=== PATIENT | female | born 2000 | race Caucasian/White ===

== ENCOUNTER 2020-08-09 16:31 | Emergency (ER) | payer OTHER ==
[2020-08-09 16:53] VITALS: BP 114/70; PULSE 80; TEMP 98.5; BMI 26.5
[2020-08-09 17:14] LABS: THROAT:GRP A STREP ANTIGEN Negative (Negative)
== END 2020-08-09 17:26 | disposition home or self-care (01) ==
LOC: JERFT 16:31 → JER 16:31 → JERFT 17:26
DX: J02.9 Acute pharyngitis, unspecified (principal)
CPT/HCPCS: 87070; 87880; 99283-25; C9803; U0003

== ENCOUNTER 2020-08-11 19:54 | Emergency (ER) | payer OTHER ==
[2020-08-11 20:45] VITALS: BP 114/71; PULSE 98; TEMP 99.3; BMI 30.9
== END 2020-08-11 20:51 | disposition home or self-care (01) ==
LOC: JERFT 19:54 → JER 19:54 → JERFT 20:51
DX: J06.9 Acute upper respiratory infection, unspecified (principal)
CPT/HCPCS: 99282-25

== ENCOUNTER 2021-09-21 19:08 | Emergency (ER) | payer OTHER ==
[2021-09-21 19:46] VITALS: BP 108/78; PULSE 89; TEMP 98.1; BMI 30.9
== END 2021-09-21 20:26 | disposition home or self-care (01) ==
LOC: JER 19:08
DX: U07.1 COVID-19 (principal)
CPT/HCPCS: 99283-25; C9803; U0003; U0005

== ENCOUNTER 2022-08-07 16:41 | Emergency (ER) | payer OTHER ==
[2022-08-07 17:06] VITALS: BP 118/75; PULSE 96; RESP 18; TEMP 98.6; BMI 32.5
[2022-08-07] MEDS ORDERED: ONDANSETRON 4 MG/2 ML VIAL IVPUSH ONE (19:15)
[2022-08-07] MEDS ORDERED: SODIUM CHLORIDE 1,000 ML IV STA (19:15)
[2022-08-07] MEDS ORDERED: ONDANSETRON 4 MG/2 ML VIAL ONE (19:50)
[2022-08-07 19:56] LABS: BASO % 0.4 % (0-2.0); EOS % 0.4 % (0-4.5); HEMATOCRIT 35.5 % (32.4-45.2); HEMOGLOBIN 11.5 GM/dL (10.7-15.3); LYMPH % 8.9 % (8-40); MCH 29.1 pg (25.7-33.7); MCHC 32.5 g/dl (32.0-36.0); MEAN CELL VOLUME 89.6 fl (80-96); MEAN PLT VOLUME 10.2 fl (7.5-11.1); MONO % 6.3 % (3.8-10.2); PLATELET COUNT 238 10^3/uL (134-434); RBC 3.96 M/mm3 (3.60-5.2); RDW 12.5 % (11.6-15.6); WHITE BLOOD COUNT 16.3 K/mm3 (4.0-10.0)
[2022-08-07 20:20] LABS: ALBUMIN 3.2 g/dl (3.4-5.0); BLOOD UREA NITROGEN 16.2 mg/dL (7-18); CALCIUM 9.1 mg/dL (8.5-10.1)
[2022-08-07 20:22] LABS: CREATININE 0.8 mg/dL (0.55-1.3)
[2022-08-07 20:24] LABS: BILIRUBIN,TOTAL 0.2 mg/dL (0.2-1); TOT PROT 7.1 g/dl (6.4-8.2)
[2022-08-07 22:12] LABS: EPI CELLS >36 /uL (0-25.1); HYALINE CASTS 1 /uL (0-3.1); URINE APPEARANCE CLOUDY; URINE BACTERIA 926 /uL (0-1359); URINE BILIRUBIN NEGATIVE (NEGATIVE); URINE COLOR YELLOW; URINE GLUCOSE (UA) NEGATIVE (NEGATIVE); URINE KETONE 3+ (NEGATIVE); URINE LEUK ESTERASE 1+ (NEGATIVE); URINE NITRITE NEGATIVE (NEGATIVE); URINE PROTEIN TRACE (NEGATIVE); URINE RBC 11 /uL (0-23.9); URINE WBC 142 /uL (0-25.8)
[2022-08-07 22:53] LABS: BASO % 0.4 % (0-2.0); EOS % 0.7 % (0-4.5); HEMATOCRIT 29.8 % (32.4-45.2); HEMOGLOBIN 9.8 GM/dL (10.7-15.3); MCH 29.7 pg (25.7-33.7); MEAN CELL VOLUME 90.1 fl (80-96); MEAN PLT VOLUME 9.9 fl (7.5-11.1); MONO % 6.6 % (3.8-10.2); NEUT % 82.3 % (42.8-82.8); PLATELET COUNT 194 10^3/uL (134-434); RBC 3.31 M/mm3 (3.60-5.2); RDW 12.5 % (11.6-15.6); WHITE BLOOD COUNT 14.8 K/mm3 (4.0-10.0)
== END 2022-08-08 01:05 | disposition home or self-care (01) ==
LOC: JER 16:41
PROC: 3E033GC Introduction of Other Therapeutic Substance into Peripheral Vein, Percutaneous Approach (ICD-10-PCS; principal; 2022-08-07)
PROC: 3E0337Z Introduction of Electrolytic and Water Balance Substance into Peripheral Vein, Percutaneous Approach (ICD-10-PCS; 2022-08-07)
DX: O23.92 Unspecified genitourinary tract infection in pregnancy, second trimester (principal); O21.8 Other vomiting complicating pregnancy; Z3A.24 24 weeks gestation of pregnancy
CPT/HCPCS: 0241U-QW; 36415; 80053; 81003; 83690; 85025; 87086; 99284-25

== ENCOUNTER 2022-09-21 04:05 | Inpatient (IN) | payer OTHER ==
[2022-09-21] MEDS ORDERED: ELECTROLYTE-148 SOLN 1,000 ML IV SCH ×4 (17:00→23:00)
[2022-09-21 17:49] LABS: BASO % 0.2 % (0-2.0); EOS % 0.4 % (0-4.5); HEMATOCRIT 31.8 % (32.4-45.2); HEMOGLOBIN 10.3 GM/dL (10.7-15.3); LYMPH % 6.1 % (8-40); MCH 28.1 pg (25.7-33.7); MCHC 32.5 g/dl (32.0-36.0); MEAN CELL VOLUME 86.4 fl (80-96); MEAN PLT VOLUME 9.9 fl (7.5-11.1); MONO % 4.4 % (3.8-10.2); NEUT % 88.9 % (42.8-82.8); PLATELET COUNT 252 10^3/uL (134-434); RBC 3.68 M/mm3 (3.60-5.2); RDW 13.4 % (11.6-15.6); WHITE BLOOD COUNT 19.2 K/mm3 (4.0-10.0)
[2022-09-21 18:17] LABS: CALCIUM 8.9 mg/dL (8.5-10.1)
[2022-09-21 18:18] LABS: BLOOD UREA NITROGEN 13.8 mg/dL (7-18)
[2022-09-21 18:21] LABS: CREATININE 0.7 mg/dL (0.55-1.3)
[2022-09-21 18:22] LABS: TOT PROT 6.9 g/dl (6.4-8.2)
[2022-09-21 18:23] LABS: BILIRUBIN,TOTAL 0.3 mg/dL (0.2-1)
[2022-09-21 20:16] LABS: EPI CELLS 15 /uL (0-25.1); HYALINE CASTS 0 /uL (0-3.1); URINE APPEARANCE CLEAR; URINE BACTERIA 175 /uL (0-1359); URINE BILIRUBIN NEGATIVE (NEGATIVE); URINE COLOR YELLOW; URINE GLUCOSE (UA) NEGATIVE (NEGATIVE); URINE KETONE 3+ (NEGATIVE); URINE LEUK ESTERASE 1+ (NEGATIVE); URINE NITRITE NEGATIVE (NEGATIVE); URINE PROTEIN NEGATIVE (NEGATIVE); URINE RBC 3 /uL (0-23.9); URINE UROBILINOGEN 0.2 mg/dL (0.2-1.0); URINE WBC 27 /uL (0-25.8)
[2022-09-21] MEDS ORDERED: BETAMET ACET/BETAMET NA PH 30 MG/5 ML VIAL IM ONE (20:30)
[2022-09-21] MEDS ORDERED: BETAMET ACET/BETAMET NA PH 30 MG/5 ML VIAL IM SCH (20:30)
[2022-09-21] MEDS ORDERED: MAGNESIUM SULFATE 4GM/100CC IN STERILE WATER IVPB ONE (20:35)
[2022-09-21] MEDS ORDERED: BETAMET ACET/BETAMET NA PH 30 MG/5 ML VIAL ONE (20:43)
[2022-09-21] MEDS ORDERED: MAGNESIUM 4GM/H20 - 4 GM/100 ML IVPB IVPB ONE ×2 (21:04→21:05)
[2022-09-21 21:21] LABS: INR 1.06 (0.83-1.09); PROTHROMBIN TIME (PATIENT) 12.2 SEC (9.7-13.0)
[2022-09-21] MEDS ORDERED: MAGNESIUM SULFATE 20GM/500ML - 20 GM/500 ML INFUS.BAG IVPB ONE (21:25)
[2022-09-21] MEDS ORDERED: MAGNESIUM SULFATE 20GM/500ML - 20 GM/500 ML INFUS.BAG ONE (21:45)
[2022-09-21] MEDS ORDERED: AMPICILLIN - 2 GM in SODIUM CHLORIDE 100 ML IVPB ONE (21:50)
[2022-09-21 22:08] VITALS: TEMP 97.9; BMI 33.1
[2022-09-21] MEDS ORDERED: AMPICILLIN SODIUM 2 GM VIAL ONE (22:13)
[2022-09-22 00:04] VITALS: RESP 18
[2022-09-22 00:44] VITALS: BP 119/72; PULSE 100
== END 2022-09-22 00:40 | disposition short-term general hospital (02) | DRG 563 ==
LOC: JDEL 04:05 → JLDR 20:35
PROVIDERS: ADMIT Obstetrics & Gynecology; ATTEND Obstetrics & Gynecology
DX: O60.03 Preterm labor without delivery, third trimester (principal); O26.879 Cervical shortening, unspecified trimester; O33.3XX0 Maternal care for disproportion due to outlet contraction of pelvis, not applicable or unspecified; Z3A.31 31 weeks gestation of pregnancy
CPT/HCPCS: 36415; 76819-TC; 80053; 81003; 82570; 84156; 85025; 85610; 85730; 86762; 86780; 86850; 86900; 86901; 87086; 87340; 96372; C9803-CS; U0003; U0005

== ENCOUNTER 2022-11-01 13:00 | Inpatient (IN) | payer OTHER ==
[2022-11-01] MEDS ORDERED: ELECTROLYTE-148 SOLN 1,000 ML IV SCH (13:30)
[2022-11-01 14:47] VITALS: BMI 36.3
[2022-11-01 15:39] LABS: BASO % 0.4 % (0-2.0); EOS % 0.3 % (0-4.5); HEMATOCRIT 28.6 % (32.4-45.2); HEMOGLOBIN 9.1 GM/dL (10.7-15.3); LYMPH % 7.1 % (8-40); MCH 26.5 pg (25.7-33.7); MCHC 31.8 g/dl (32.0-36.0); MEAN CELL VOLUME 83.4 fl (80-96); MEAN PLT VOLUME 9.3 fl (7.5-11.1); MONO % 4.9 % (3.8-10.2); NEUT % 87.3 % (42.8-82.8); PLATELET COUNT 215 10^3/uL (134-434); RBC 3.43 M/mm3 (3.60-5.2); RDW 14.5 % (11.6-15.6)
[2022-11-01] MEDS ORDERED: OXYTOCIN 30 UNITS in 0.9% NS 30 UNIT/500 ML INFUS.BAG IVPB SCH (15:45)
[2022-11-01 15:48] LABS: INR 1.03 (0.83-1.09)
[2022-11-01 15:51] LABS: ACTIVATED PTT 25.7 SECONDS (25.2-36.5)
[2022-11-01 16:02] LABS: CALCIUM 8.8 mg/dL (8.5-10.1)
[2022-11-01 16:03] LABS: BLOOD UREA NITROGEN 10.4 mg/dL (7-18)
[2022-11-01] MEDS ORDERED: FENTANYL/BUPIVACAINE/NS/PF - PCEA - 50 ML DISP.SYRIN EP ONE (16:32)
[2022-11-01] MEDS ORDERED: BUPIVACAINE HCL/PF 0.25% (2.5MG/ML) 10 ML VIAL ONE ×2 (16:44→17:15)
[2022-11-01] MEDS ORDERED: FENTANYL CITRATE/PF 50 MCG/ML VIAL ONE (17:14)
[2022-11-01] MEDS ORDERED: BUTORPHANOL TARTRATE 2 MG/ML VIAL ONE (17:43)
[2022-11-01] MEDS ORDERED: PROMETHAZINE HCL 25 MG/1 ML VIAL ONE (17:43)
[2022-11-01] MEDS ORDERED: BUTORPHANOL TARTRATE 2 MG/ML VIAL IVPB ONE (17:59)
[2022-11-01] MEDS ORDERED: PROMETHAZINE HCL 25 MG/1 ML VIAL IVPB ONE (17:59)
[2022-11-01 18:07] LABS: HIV INTERPRETATION NEGATIVE (NEGATIVE)
[2022-11-01] MEDS ORDERED: OXYTOCIN 20 UNITS in 0.9% NS 20 UNIT/1,000 ML INFUS.BAG IV ONE (18:41)
[2022-11-01] MEDS ORDERED: LIDOCAINE HCL 1% PRESERVATIVE FREE - 30ML VIAL ONE (18:41)
[2022-11-01] MEDS: IBUPROFEN 600 MG TABLET (FP) PO PRN (19:30)
[2022-11-01] MEDS ORDERED: IBUPROFEN 600 MG TABLET (FP) PO ONE (19:38)
[2022-11-01] MEDS ORDERED: BENZOCAINE 28 GM HEMORRHOIDAL OINTMENT TP PRN (19:59)
[2022-11-01] MEDS ORDERED: METHYLERGONOVINE MALEATE 0.2 MG/1 ML AMP IM PRN (19:59)
[2022-11-01] MEDS ORDERED: oxyCODONE HCL 5 MG TABLET PO PRN (19:59)
[2022-11-01] MEDS ORDERED: BENZOCAINE 20% 57 GM BOTTLE TP PRN (19:59)
[2022-11-01] MEDS ORDERED: WITCH HAZEL 50% (TUCKS) 40 PAD/JAR PAD TP PRN (19:59)
[2022-11-01] MEDS ORDERED: BISACODYL 10 MG SUPP.RECT RC PRN (19:59)
[2022-11-01] MEDS ORDERED: OXYTOCIN 20 UNITS in 0.9% NS 20 UNIT/1,000 ML INFUS.BAG IV SCH (20:00)
[2022-11-01] MEDS: ACETAMINOPHEN 325 MG TABLET (FP) PO PRN (23:03)
[2022-11-02] MEDS: IBUPROFEN 600 MG TABLET (FP) PO PRN ×4 (01:36→23:34)
[2022-11-02] MEDS: ACETAMINOPHEN 325 MG TABLET (FP) PO PRN (08:13)
[2022-11-02 08:36] LABS: BASO % 0.3 % (0-2.0); EOS % 0.3 % (0-4.5); HEMATOCRIT 25.3 % (32.4-45.2); HEMOGLOBIN 8.3 GM/dL (10.7-15.3); LYMPH % 8.6 % (8-40); MCH 27.4 pg (25.7-33.7); MCHC 32.6 g/dl (32.0-36.0); MEAN CELL VOLUME 83.9 fl (80-96); MEAN PLT VOLUME 9.7 fl (7.5-11.1); MONO % 7.3 % (3.8-10.2); NEUT % 83.5 % (42.8-82.8); PLATELET COUNT 206 10^3/uL (134-434); RBC 3.02 M/mm3 (3.60-5.2); RDW 14.6 % (11.6-15.6); WHITE BLOOD COUNT 19.2 K/mm3 (4.0-10.0)
[2022-11-02] MEDS ORDERED: SENNOSIDES/DOCUSATE COMBO (SENNA PLUS) TABLET (UD) PO PRN (22:00)
[2022-11-03 11:41] VITALS: BP 118/81; PULSE 94; RESP 16; TEMP 98.2
[2022-11-03] MEDS: IBUPROFEN 600 MG TABLET (FP) PO PRN (12:17)
== END 2022-11-03 14:00 | disposition home or self-care (01) | DRG 560 ==
LOC: JDEL 13:00 → JLDR 13:30 → J3W 21:07
PROVIDERS: ADMIT Specialist; ATTEND Specialist
PROC: 10E0XZZ Delivery of Products of Conception, External Approach (ICD-10-PCS; principal; 2022-11-01)
PROC: 0HQ9XZZ Repair Perineum Skin, External Approach (ICD-10-PCS; 2022-11-01)
DX: O60.14X0 Preterm labor third trimester with preterm delivery third trimester, not applicable or unspecified (principal); O70.0 First degree perineal laceration during delivery; O69.1XX0 Labor and delivery complicated by cord around neck, with compression, not applicable or unspecified; Z3A.36 36 weeks gestation of pregnancy; Z37.0 Single live birth
CPT/HCPCS: 36415; 59409; 80048; 85025; 85610; 85730; 86780; 86850; 86900; 86901; 87389; C9803-CS; U0003; U0005

== ENCOUNTER 2023-04-12 12:15 | Emergency (ER) | payer OTHER ==
[2023-04-12 12:27] VITALS: BP 138/81; PULSE 105; RESP 16; TEMP 98.9; BMI 30.9
[2023-04-12 13:20] LABS: URINE APPEARANCE CLEAR; URINE BILIRUBIN NEGATIVE (NEGATIVE); URINE COLOR YELLOW; URINE GLUCOSE (UA) NEGATIVE (NEGATIVE); URINE KETONE TRACE (NEGATIVE); URINE LEUK ESTERASE NEGATIVE (NEGATIVE); URINE NITRITE NEGATIVE (NEGATIVE); URINE PROTEIN NEGATIVE (NEGATIVE)
[2023-04-12 13:23] LABS: HCG,QUALITATIVE URINE Negative
[2023-04-12] MEDS ORDERED: MAGNESIUM HYDROX 2400MG/30ML ORAL SUSPENSION 30 ML CUP PO ONE (14:25)
[2023-04-12] MEDS ORDERED: MAG HYDROX/AL HYDROX/SIMETH 30 ML UNIT-DOSE CUP ONE (14:27)
[2023-04-12] MEDS ORDERED: FAMOTIDINE 20 MG TABLET PO ONE (14:48)
[2023-04-12] MEDS ORDERED: FAMOTIDINE 20 MG TABLET ONE (14:50)
== END 2023-04-12 15:09 | disposition home or self-care (01) ==
LOC: JERFT 12:15
DX: K30 Functional dyspepsia (principal)
CPT/HCPCS: 36415; 74190-TC-FY; 81003; 84703; 87086; 87491; 87591; 99283-25

== ENCOUNTER 2023-07-03 13:57 | Emergency (ER) | payer OTHER ==
[2023-07-03 14:12] VITALS: BP 114/62; PULSE 92; RESP 18; TEMP 98.1; BMI 31.6
[2023-07-03] MEDS ORDERED: SODIUM CHLORIDE 1,000 ML IV STA (15:52)
== END 2023-07-03 16:24 | disposition left against medical advice (07) ==
LOC: JER 13:57
DX: R10.9 Unspecified abdominal pain (principal); R51.9 Headache, unspecified; R68.83 Chills (without fever); R19.7 Diarrhea, unspecified; R11.0 Nausea; Z53.21 Procedure and treatment not carried out due to patient leaving prior to being seen by health care provider
CPT/HCPCS: 99281-25